=== PATIENT | female | born 1940 | race Caucasian/White ===

== ENCOUNTER → 2017-06-13 | Outpatient (RCR) | payer MEDICARE, MEDICAID ==
[~2017-06-13] MED LIST: ARTIFICIAL TEAR15 ML BOTH EYES; ASPIRIN81 MG ORAL; ATORVASTATIN CA40 MG ORAL; CATAPRES0.2 MG ORAL; COLACE100 MG ORAL; DEBROX15 M1 BOTH EARS; FEMARA2.5 MG ORAL; FLUTICASONE PRO16 G1 NASAL; GABAPENTIN300 MG ORAL; KEPPRA750 MG ORAL; LORATADINE10 M1 PO; LOSARTAN POTASS50 MG ORAL; MAPAP500 M2 PO; METFORMIN HCL1000 M1 ORAL; MIRALAX17 G2 ORAL; NORVASC10 MG ORAL; NOVOLIN R100 UNIT/1 SUBQ; NUEDEXTA 20-101 EAC1 PO; OMEPRAZOLE40 M1 ORAL; RISPERDAL2 MG ORAL; ROBAFEN-DM SYR118 ML PO; TRADJENTA5 MG PO; VITAMIN D22000 UNIT PO
== END | disposition home or self-care (01) ==
LOC: WCC 17:29
DX: L89.150 Pressure ulcer of sacral region, unstageable (principal); M84.3 Stress fracture; X58.XXXD Exposure to other specified factors, subsequent encounter
CPT/HCPCS: 11042

== ENCOUNTER → 2017-06-13 | Outpatient (CLI) | payer MEDICARE, MEDICAID | END | disposition home or self-care (01) | LOC: MAMMO 12:04 | DX: Z12.31 Encounter for screening mammogram for malignant neoplasm of breast (principal); Z90.12 Acquired absence of left breast and nipple ==

== ENCOUNTER 2017-06-16 08:29 | Emergency (ER) | payer MEDICARE, OTHER ==
[2017-06-16] VITALS (7 sets, daily range): BP systolic 138–158; BP diastolic 61–110
[~2017-06-16] VITALS: Ht 152.4 cm; Wt 49.9 kg
[2017-06-16] MEDS ORDERED: CATAPRES0.2 MG ORAL (08:45)
[2017-06-16] MEDS ORDERED: MAPAP500 M2 PO (08:45)
[2017-06-16] MEDS ORDERED: ARTIFICIAL TEAR15 ML BOTH EYES (08:45)
[2017-06-16] MEDS ORDERED: TRADJENTA5 MG PO (08:49)
[2017-06-16] MEDS ORDERED: ROBAFEN-DM SYR118 ML PO (08:52)
[2017-06-16] MEDS ORDERED: FLUTICASONE PRO16 G1 NASAL (08:52)
[2017-06-16] MEDS ORDERED: METFORMIN HCL1000 M1 ORAL (08:52)
[2017-06-16] MEDS ORDERED: NOVOLIN R100 UNIT/1 SUBQ (08:52)
[2017-06-16] MEDS ORDERED: RISPERDAL2 MG ORAL (08:52)
[2017-06-16] MEDS ORDERED: VITAMIN D22000 UNIT PO (08:52)
[2017-06-16] MEDS ORDERED: GABAPENTIN300 MG ORAL (08:52)
[2017-06-16] MEDS ORDERED: ATORVASTATIN CA40 MG ORAL (08:53)
[2017-06-16] MEDS ORDERED: LORATADINE10 M1 PO (08:53)
--- NOTE | 2017-06-16 08:58 | Emergency Room Report ---
History of Present Illness General Chief Complaint: General Complaint Source: Patient, Caregiver Present Illness HPI The patient is sent in for worsening decubitus ulcer. Apparently from last week to this last Tuesday the size is increased from 3 cm to 7. Also it's been deepening. She's not taking any antibiotics. Has been cared for with home health at the [facility]. The patient complains about pain there. She the has been controlled with Tylenol in the past. She was last given Tylenol last night. She states that the pain is aching and rates it at a 9/10. The patient has been losing weight. She states she has trouble chewing things because of her poor teeth. She perks up we talk about of malts or other nutritional liquids. She also complains about constipation. She denies dysuria. There's no chest pain, cough or sore throat, extremity pain. The patient is treated for hypertension, diabetes and arthritis. 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[facility] Reviewed Nursing Documentation: PMH: Agreed; PSxH: Agreed Nursing Documentation-PMH Hx Hypertension: Yes Hx Diabetes: Yes Review of Systems All Other Systems: negative except mentioned in HPI Physical Exam Vital Signs Date Time Temp Pulse Resp B/P (MAP) Pulse Ox O2 Delivery O2 Flow Rate FiO2 06/16/17 08:39 97.6 67 16 121/75 95 Room Air 97.5 Sp02 EP Interpretation: reviewed, normal General Appearance: no apparent distress, alert, thin, Chronically Ill Head: normocephalic Eyes: bilateral eye normal inspection, bilateral eye PERRL ENT: moist mucus membranes Neck: supple Respiratory: lungs clear, normal breath sounds Cardiovascular #1: regular rate, rhythm Cardiovascular #2: 2+ radial (R) Gastrointestinal: normal inspection, normal bowel sounds, non tender, no mass, non-distended Musculoskeletal: back normal, gait/station normal, normal range of motion Neurologic: alert, sensory intact, motor weakness - generalized, oriented - x2 Psychiatric: mood/affect normal Skin: warm/dry, other - Stage 4 decubitus sacral regeon Medical Decision Making Diagnostic Impression: Primary Impression: Decubitus ulcer Qualified Codes: L89.154 - Pressure ulcer of sacral region, stage 4 Additional Impressions: Malnutrition Qualified Codes: E44.0 - Moderate protein-calorie malnutrition Failure to thrive Qualified Codes: R62.7 - Adult failure to thrive ER Course The patient presents with worsening decubitus ulcer. Differential includes osteomyelitis, poor nutrition, decubitus worsening, superficial infection amongst others. Evaluation will be with EKG, chest x-ray, lumbar spine films and labs including blood cultures lactate and sedimentation rate and C-reactive protein. As the decubitus is worsening despite aggressive outpatient care the patient will be admitted to the hospital. This may need surgical debridement and possibly a flap repair. In addition she needs nutritional assessment. EKG without injury. Chest x-ray with senile changes without infiltrates. LS- spine films with old compression fracture of L5 and degenerative disease and osteopenia with a soft tissue defect. Labs with normal white count. BUN elevated. Discussed with Dr. Sims who feels patient stable for outpatient surgical consultation. She states she will not be able to get a surgical consultation before weekend. I told her she is undergoing aggressive wound care which is failing and her physician wants the patient admitted for surgical consultation ( she was seen by Dr. Saucedo in the ED). She will accept the patient in transfer. Laboratory Tests Test 06/16/17 08:50 06/16/17 09:10 06/16/17 13:05 White Blood Count 9.5 K/UL (4.8-10.8) Red Blood Count 3.86 M/UL (4.20-5.40) L Hemoglobin 12.4 G/DL (12.0-16.0) Hematocrit 35.9 % (37.0-47.0) L Mean Corpuscular Volume 93 FL (80-99) Mean Corpuscular Hemoglobin 32.1 PG (27.0-31.0) H Mean Corpuscular Hemoglobin Concent 34.4 G/DL (32.0-36.0) Red Cell Distribution Width 12.9 % (11.6-14.8) Platelet Count 343 K/UL (150-450) Mean Platelet Volume 5.8 FL (6.5-10.1) L Neutrophils (%) (Auto) 81.6 % (45.0-75.0) H Lymphocytes (%) (Auto) 10.9 % (20.0-45.0) L Monocytes (%) (Auto) 6.3 % (1.0-10.0) Eosinophils (%) (Auto) 0.7 % (0.0-3.0) Basophils (%) (Auto) 0.5 % (0.0-2.0) Erythrocyte Sedimentation Rate 20 MM/HR (0-30) Prothrombin Time 9.8 SEC (9.30-11.50) Prothrombin Time INR 0.9 (0.9-1.1) PTT 27 SEC (23-33) Lactic Acid Level 2.00 mmol/L (0.66-2.22) Pending Troponin I 0.000 ng/mL (0.000-0.056) Urine Color Yellow Urine Appearance Clear Urine pH 5 (4.5-8.0) Urine Specific [place] 1.020 (1.005-1.035) Urine Protein 1+ (NEGATIVE) H Urine Glucose (UA) Negative (NEGATIVE) Urine Ketones Negative (NEGATIVE) Urine Occult Blood Negative (NEGATIVE) Urine Nitrite Negative (NEGATIVE) Urine Bilirubin Negative (NEGATIVE) Urine Urobilinogen Normal MG/DL (0.0-1.0) Urine Leukocyte Esterase Negative (NEGATIVE) Urine RBC 0-2 /HPF (0 - 2) Urine WBC 0-2 /HPF (0 - 2) Urine Squamous Epithelial Cells Occasional /LPF Urine Bacteria Few /HPF (NONE) Sodium Level 140 MMOL/L (136-145) Potassium Level 4.2 MMOL/L (3.5-5.1) Chloride Level 105 MMOL/L (98-107) Carbon Dioxide Level 29 MMOL/L (21-32) Anion Gap 6 mmol/L (5-15) Blood Urea Nitrogen 19 mg/dL (7-18) H Creatinine 0.7 MG/DL (0.55-1.30) Estimate Glomerular Filtration Rate mL/min (>60) Glucose Level 95 MG/DL (74-106) Calcium Level 8.9 MG/DL (8.5-10.1) Total Bilirubin 0.2 MG/DL (0.2-1.0) Aspartate Amino Transferase (AST) 25 U/L (15-37) Alanine Aminotransferase (ALT) 30 U/L (12-78) Alkaline Phosphatase 96 U/L (46-116) Total Creatine Kinase 46 U/L (26-308) Creatine Kinase MB < 0.5 NG/ML (0.0-3.6) Creatine Kinase MB Relative Index 1.0 Pro-B-Type Natriuretic Peptide 229 pg/mL (0-125) H Total Protein 6.9 G/DL (6.4-8.2) Albumin 2.8 G/DL (3.4-5.0) L Globulin 4.1 g/dL Albumin/Globulin Ratio 0.7 (1.0-2.7) L Thyroid Stimulating Hormone (TSH) 2.101 uiU/mL (0.358-3.740) EKG Diagnostic Results Rate: normal Rhythm: NSR ST Segments: no acute changes Rhythm Strip Diag. Results EP Interpretation: yes Rhythm: NSR, no PVC's, no ectopy Other X-Ray Diagnostic Results Other X-Ray Diagnostic Results : X-Ray ordered: ls spine # of Views/Limited Vs Complete: 3 View Indication: Other - decub EP Interpretation: Yes Interpretation: other - old fx, soft tissue changes, djd Impression: Other Electronically Signed by: Electronically signed by Brooks Shah MD CT/MRI/US Diagnostic Results CT/MRI/US Diagnostic Results : Imaging Test Ordered: mri Impression no osteo or abscess - SQ edema, Last Vital Signs Date Time Temp Pulse Resp B/P (MAP) Pulse Ox O2 Delivery O2 Flow Rate FiO2 06/16/17 08:39 97.6 67 16 121/75 95 Room Air 97.5 Status: improved Disposition: XFER SHT-TRM HOSP Condition: Serious Brooks Shah M.D. June 16, 2017 08:58
[2017-06-16 09:18] LABS: BASOPHILS % (AUTO) 0.5 % (0.0-2.0); EOSINOPHILS % (AUTO) 0.7 % (0.0-3.0); HEMATOCRIT 35.9 % (37.0-47.0); HEMOGLOBIN 12.4 G/DL (12.0-16.0); LYMPHOCYTES % (AUTO) 10.9 % (20.0-45.0); MEAN CORPUSCULAR VOLUME 93 FL (80-99); MONOCYTES % (AUTO) 6.3 % (1.0-10.0); NEUTROPHILS % (AUTO) 81.6 % (45.0-75.0); PLATELET COUNT 343 K/UL (150-450); RED BLOOD COUNT 3.86 M/UL (4.20-5.40); RED CELL DISTRIBUTION WIDTH 12.9 % (11.6-14.8); WHITE BLOOD COUNT 9.5 K/UL (4.8-10.8)
[2017-06-16 09:27] LABS: APPEARANCE,URINE CLEAR; BILIRUBIN, URINE NEGATIVE (NEGATIVE); GLUCOSE, URINE (UA) NEGATIVE (NEGATIVE); KETONES,URINE NEGATIVE (NEGATIVE); LEUKOCYTE ESTERASE ,URINE NEGATIVE (NEGATIVE); NITRITE,URINE NEGATIVE (NEGATIVE); PH,URINE 5 (4.5-8.0); PROTEIN,URINE 1+ (NEGATIVE); UROBILINOGEN,URINE NORMAL MG/DL (0.0-1.0)
[2017-06-16 09:32] LABS: COLOR,URINE YELLOW
[2017-06-16 09:33] LABS: ANION GAP 6 mmol/L (5-15); BLOOD UREA NITROGEN 19 mg/dL (7-18); CALCIUM 8.9 MG/DL (8.5-10.1); CARBON DIOXIDE 29 MMOL/L (21-32); CHLORIDE 105 MMOL/L (98-107); CREATININE 0.7 MG/DL (0.55-1.30); POTASSIUM 4.2 MMOL/L (3.5-5.1); SODIUM 140 MMOL/L (136-145)
[2017-06-16] MEDS ORDERED: NUEDEXTA 20-101 EAC1 PO (09:34)
[2017-06-16] MEDS ORDERED: DEBROX15 M1 BOTH EARS (09:34)
[2017-06-16] MEDS ORDERED: MIRALAX17 G2 ORAL (09:34)
[2017-06-16] MEDS ORDERED: NORVASC10 MG ORAL (09:34)
[2017-06-16] MEDS ORDERED: FEMARA2.5 MG ORAL (09:34)
[2017-06-16] MEDS ORDERED: ASPIRIN81 MG ORAL (09:34)
[2017-06-16] MEDS ORDERED: COLACE100 MG ORAL (09:34)
[2017-06-16] MEDS ORDERED: OMEPRAZOLE40 M1 ORAL (09:34)
[2017-06-16] MEDS ORDERED: KEPPRA750 MG ORAL (09:34)
[2017-06-16] MEDS ORDERED: LOSARTAN POTASS50 MG ORAL (09:34)
[2017-06-16 09:42] LABS: INR 0.9 (0.9-1.1)
[2017-06-16 09:46] LABS: ALANINE AMINOTRANSFERASE 30 U/L (12-78); ALBUMIN 2.8 G/DL (3.4-5.0); ALBUMIN/GLOBULIN RATIO 0.7 (1.0-2.7); ALKALINE PHOSPHATASE 96 U/L (46-116); ASPARTATE AMINO TRANSFERASE 25 U/L (15-37); BILIRUBIN,TOTAL 0.2 MG/DL (0.2-1.0); CKMB < 0.5 NG/ML (0.0-3.6); CREATINE KINASE 46 U/L (26-308)
--- NOTE | 2017-06-16 09:49 | Diagnostic Imaging Report ---
Indication: Dyspnea Comparison: None A single view chest radiograph was obtained. Findings: No definite infiltrate or pulmonary vascular congestion identified. Surgical clips demonstrated in the left axilla. The heart is enlarged. The aorta is mildly enlarged consistent with atherosclerotic vascular disease. The bones are osteopenic. Impression: No acute disease
--- NOTE | 2017-06-16 11:22 | Diagnostic Imaging Report ---
Indication: Back pain Comparison: None Findings: 3 views of the lumbar spine were obtained. There is severe deformity of the L5 vertebra which appears collapsed and somewhat expanded with of bone protruding anteriorly. The bones are osteopenic. Aorta is severely calcified. There is a slight contour deformity of the lower sacrum/coccyx likely indicative of an old fracture. IMPRESSION: Chronic deformity as described above. Severe collapse of the L5 vertebra noted. Osteoporosis. Old coccyx fracture. Atherosclerotic disease
[2017-06-16] MEDS ORDERED: Mylanta II UD 30ml ORAL ONE (17:15)
== END 2017-06-16 17:57 | disposition short-term general hospital (02) ==
LOC: EDBEDREQ 08:44 → EMR 08:54 → UNDOADMIN 11:38 → 4E 11:38 → EDBEDREQ 16:20 → EMR 17:57
DX: L89.154 Pressure ulcer of sacral region, stage 4 (principal); E44.0 Moderate protein-calorie malnutrition; Z68.21 Body mass index [BMI] 21.0-21.9, adult; R62.7 Adult failure to thrive; I10 Essential (primary) hypertension; E11.9 Type 2 diabetes mellitus without complications
CPT/HCPCS: 36415; 71045; 72020; 80053; 81003; 82550; 82553; 83605; 83880; 84443; 84484; 85025; 85610; 85651; 85730; 86850; 86900; 86901; 87040; 87081; 93005; 99285

== ENCOUNTER → 2017-06-16 | Outpatient (CLI) | payer MEDICARE, OTHER ==
--- NOTE | 2017-06-16 12:01 | Diagnostic Imaging Report ---
Indication: Hip and pelvis pain Technique: MRI examination of the pelvis was performed in a 1.5 Elo magnet. Sequences obtained include multiplanar T1, T2 fast spin echo with fat saturation, and STIR. No gadolinium given. Comparison: none Findings: There is a moderate degree of subcutaneous edema particularly over the left gluteal region. A small amount of T2 hyperintense edema noted within portions of the gluteus musculature (for e.g. gluteus minimus on anterior right) bilaterally, relatively nonspecific in appearance. Similar findings with regard to the iliac crest muscles (iliacus) regions bilaterally and portions of the adductor muscles. There is no evidence of an abscess. There is no evidence of deep decubitus ulceration, sinus tract or acute osteomyelitis. Bone marrow signal within the visualized sacrum, coccyx, both hips and remainder of the pelvic bones appear normal. There is a severe, old vertebral collapse of the L5 vertebra. There is an incidental, large cystic focus above the urinary bladder measuring about 12 x 8 x 9 cm of unknown etiology. This could be an ovarian cyst given the sex of the patient and location within the pelvis. The cervix is present. The uterus is probably present but quite atrophic. IMPRESSION: No evidence of acute osteomyelitis or sacral decubitus abscess. Moderate subcutaneous edema demonstrated posteriorly in the left gluteal region, presumably cellulitis. Correlate clinically. Mild, patchy areas of T2 hyperintense edema within portions of the gluteal musculature, adductor region and iliacus. This may be related to recent trauma i.e. intrasubstance muscle strain/tears. Old L5 vertebral fracture. 12 x 8 x 9 cm incidental pelvic cyst of undetermined etiology. This may be an ovarian cyst. Motion artifacts
== END | disposition home or self-care (01) ==
LOC: MRI 10:25
DX: M86.9 Osteomyelitis, unspecified (principal); N94.89 Other specified conditions associated with female genital organs and menstrual cycle
CPT/HCPCS: 72195